=== PATIENT | female | born 1975 | race Caucasian/White ===

== ENCOUNTER 2018-03-19 12:16 | Emergency (ER) | payer OTHER ==
[2018-03-19 12:25] VITALS: BP 118/78; PULSE 73; TEMP 98.7; BMI 34.4
[2018-03-19 13:42] LABS: URINE APPEARANCE SLCLOUDY; URINE BILIRUBIN NEGATIVE (<2.0 mg/dL); URINE COLOR STRAW; URINE GLUCOSE (UA) NEGATIVE (NEGATIVE); URINE KETONE NEGATIVE (NEGATIVE); URINE LEUK ESTERASE NEGATIVE (NEGATIVE); URINE NITRITE NEGATIVE (NEGATIVE); URINE PROTEIN NEGATIVE (NEGATIVE); URINE UROBILINOGEN NEGATIVE mg/dL (0.2-1.0)
[2018-03-19 13:44] LABS: HCG,QUALITATIVE URINE Negative
--- NOTE | 2018-03-19 14:05 | PDOC ---
History of Present Illness - General Chief Complaint: Revisit, Lab Variance Stated Complaint: COLD Time Seen by Provider: 03/19/18 12:48 - History of Present Illness Initial Comments: 03/19/18 14:00 43-year-old female presents for evaluation of lower back pain with right posterior lateral leg radicular symptoms without loss of bowel or bladder function times one week. She does have increasing urinary frequency with her back pain. She also has subjective fevers at home. She was seen by a primary care provider who sent to the emergency room for a white count of 13. I've discussed this case with the primary care provider and that was her sole reason for ER visit. There were no other associated symptoms her office exam was benign. Primary care provider is Lorna ESPINAL Past History - Past Medical History Allergies/Adverse Reactions: Allergies Allergy/AdvReac Type Severity Reaction Status Date / Time No Known Allergies Allergy Verified 03/19/18 12:21 Home Medications: Ambulatory Orders No Home Medications 0 dose .ROUTE UTDICT 11/18/12 Diazepam [Valium] 10 mg PO TID PRN #9 tablet 11/19/12 Hydrocodone/Acetaminophen [Culver 5-325 Tablet] 1 - 2 tab PO QID PRN #16 tablet 11/19/12 Ibuprofen [Motrin] 600 mg PO QID PRN #20 tablet 11/19/12 Cyclobenzaprine HCl [Flexeril 10 mg] 10 mg PO HS PRN #10 tablet 03/19/18 Methylprednisolone [Medrol Dose Samuel] 4 mg PO ASDIR #21 tablet 03/19/18 - Suicide/Smoking/Psychosocial Hx Smoking Status: No Smoking History: Never smoked Number of Cigarettes Smoked Daily: 0 Hx Alcohol Use: No Drug/Substance Use Hx: No Review of Systems - Review of Systems : Yes: See HPI Musculoskeletal: Yes: Back Pain All Other Systems: Reviewed and Negative *Physical Exam - Vital Signs Last Vital Signs Temp Pulse Resp BP Pulse Ox 98.7 F 73 16 118/78 99 03/19/18 12:23 03/19/18 12:23 03/19/18 12:23 03/19/18 12:23 03/19/18 12:23 - Physical Exam Comments: 03/19/18 14:01 HEAD: NC/AT EYES: Conjuntiva clear Ears: Canals and TM's normal NOSE: No d/c THROAT: Moist mucous membrances, oral pharanx clear, uvula midline NECK: Supple without adenopathy CARDIAC: S1 S2 LUNGS: CTA Full and Equal breath sounds ABDOMEN: Soft NT ND MS: Full ROM in all joints without edema NEUROLOGIC: No gross sensory or motor deficits, NVID SKIN: Normal color and temperature no lesions or rashes Lumbar spine skin color and temperature are normal range of motion is slightly decreased. There is moderate right-sided paralumbar musculature spasm and tenderness. 5 out of 5 strength in bilateral lower extremities positive straight leg raise test on the right negative on the left. Thighs and calves are soft and nontender. She has no gross sensorimotor deficits per she's neurovascular intact. ED Treatment Course - ADDITIONAL ORDERS Additional order review: Laboratory Results 03/19/18 13:10 Urine Color Straw Urine Appearance Slcloudy Urine pH 6.0 Ur Specific [place] 1.011 Urine Protein Negative Urine Glucose (UA) Negative Urine Ketones Negative Urine Blood Negative Urine Nitrite Negative Urine Bilirubin Negative Urine Urobilinogen Negative Ur Leukocyte Esterase Negative Urine HCG, Qual Negative Medical Decision Making - Medical Decision Making 03/19/18 14:03 History and exam was done using Google translate and the patient relative on the phone *DC/Admit/Observation/Transfer Diagnosis at time of Disposition: Lumbar radiculopathy - Discharge Dispostion Disposition: HOME Condition at time of disposition: Stable Decision to Admit order: No - Referrals Referrals: Ruiz Zimmerman MD [Staff Physician] - - Patient Instructions Printed Discharge Instructions: Lumbar Radiculopathy, DI for Lumbar Radiculopathy Additional Instructions: La orina fue negativa hoy. Usted no tiene tigre infeccin. el dolor que viene por la pierna proviene de la parte inferior de la espalda. He colocado en el paquete de esteroides, que es tigre dosis gradual y debe tomarse segn las indicaciones. Instrucciones en la parte posterior del paquete. Y un relajante muscular. Es tigre tableta antes de acostarse. No tome ningn otro medicamento, excepto Tylenol, si necesita algo ms para el dolor mientras est en el paquete de esteroides. Regrese a la [place] de emergencias en giovanna de que los sntomas empeoren o no se resuelvan y realice tigre ciruga de seguimiento para tigre evaluacin adicional y opciones de tratamiento. urine was negative today. You do not have an infection. the pain that is coming down your leg is coming from the lower back. I've placed on the steroid pack which is a tapering dose and should be taken as directed. He instructions on the back of the pack. And a muscle relaxer. It's one tablet before bedtime. Do not take any other medications except Tylenol if he needs anything more for pain while on the steroid pack. Return to the emergency room should symptoms worsen or go unresolved and follow-up spine surgery for further evaluation and treatment options. Print Language: [id number] - Post Discharge Activity
== END 2018-03-19 14:07 | disposition home or self-care (01) ==
LOC: JERFT 12:16
DX: M54.16 Radiculopathy, lumbar region (principal)
CPT/HCPCS: 81003; 84703; 87086; 99281-25

== ENCOUNTER 2023-05-29 07:14 | Emergency (ER) | payer OTHER ==
[2023-05-29 07:30] VITALS: BP 137/90; PULSE 83; RESP 20; TEMP 98.6; BMI 32.9
[2023-05-29] MEDS ORDERED: ACETAMINOPHEN 1000 MG/100 ML BAG IVPB ONE (08:48)
[2023-05-29] MEDS ORDERED: LIDOCAINE 4% PATCH TP ONE ×2 (08:48→08:53)
[2023-05-29] MEDS ORDERED: ACETAMINOPHEN INJECTION 100 ML IVPB ONE (08:53)
[2023-05-29] MEDS ORDERED: KETOROLAC TROMETHAMINE 15 MG/ML VIAL IVPUSH ONE (09:09)
[2023-05-29] MEDS ORDERED: KETOROLAC TROMETHAMINE 15 MG/ML VIAL ONE (09:22)
[2023-05-29] MEDS ORDERED: METHOCARBAMOL 500 MG TABLET PO ONE (09:57)
[2023-05-29] MEDS ORDERED: METHOCARBAMOL 500 MG TABLET ONE (10:18)
[2023-05-29] MEDS ORDERED: oxyCODONE HCL 5 MG TABLET PO ONE (11:41)
[2023-05-29] MEDS ORDERED: oxyCODONE HCL 5 MG TABLET ONE (11:50)
== END 2023-05-29 13:19 | disposition home or self-care (01) ==
LOC: JER 07:14
PROC: 3E033NZ Introduction of Analgesics, Hypnotics, Sedatives into Peripheral Vein, Percutaneous Approach (ICD-10-PCS; principal; 2023-05-29)
PROC: 3E0333Z Introduction of Anti-inflammatory into Peripheral Vein, Percutaneous Approach (ICD-10-PCS; 2023-05-29)
DX: M54.16 Radiculopathy, lumbar region (principal); M54.50 Low back pain, unspecified; R20.2 Paresthesia of skin; R20.0 Anesthesia of skin; M25.551 Pain in right hip
CPT/HCPCS: 72100-TC-FY; 96374; 96375; 99284-25

== ENCOUNTER 2023-07-04 04:26 | Day surgery (SDC) | payer OTHER ==
[2023-06-30 14:14] VITALS: BMI 32.9
[2023-07-04] MEDS ORDERED: DEXAMETHASONE SOD PHOSPHATE 10 MG/1 ML VIAL ONE (07:32)
[2023-07-04] MEDS ORDERED: LIDOCAINE HCL/PF 1% SDV 5ML VIAL ONE (07:33)
[2023-07-04 08:16] VITALS: RESP 18
[2023-07-04] MEDS: DEXAMETHASONE SOD PHOSPHATE 10 MG/1 ML VIAL IVPUSH ONE ×2 (09:40)
[2023-07-04] MEDS: LIDOCAINE 1% P/F 10 MG/ML VIAL INF ONE ×3 (09:40)
[2023-07-04] MEDS: IOHEXOL 180 MG/1 ML ML IJ ONE ×2 (09:40)
[2023-07-04 11:08] VITALS: TEMP 97.8
[2023-07-04 11:55] VITALS: BP 120/79; PULSE 78
[2023-07-04] MEDS ORDERED: ACETAMINOPHEN 500 MG TABLET (FP) PO PRN (14:43)
== END 2023-07-04 10:30 | disposition home or self-care (01) ==
LOC: JASU-SURG 04:26
PROVIDERS: ATTEND Pain Medicine Pain Medicine
PROC: 3E0R3BZ Introduction of Anesthetic Agent into Spinal Canal, Percutaneous Approach (ICD-10-PCS; 2023-07-04)
PROC: 3E0R33Z Introduction of Anti-inflammatory into Spinal Canal, Percutaneous Approach (ICD-10-PCS; principal; 2023-07-04 09:45)
DX: M54.16 Radiculopathy, lumbar region (principal)
CPT/HCPCS: 76000-TC-FY; 81025; J1100